=== PATIENT | female | born 1980 | race Caucasian/White ===

== ENCOUNTER 2017-11-14 19:07 | Emergency (ER) | payer SELFPAY ==
--- NOTE | 2017-11-14 20:06 | CT ---
CT LUMBAR SPINE WITHOUT CONTRAST: Comparison: None. History: Chronic low back pain status post lumbar surgery three times in the past over the last five years. Radiating pain to the right knee that started this morning. Technique: Multiple contiguous axial images were obtained in a CT of the lumbar spine without contras t. Sagittal and coronal reformats were performed. FINDINGS: Vertebral bodies and intervertebral discs demonstrate normal height and alignment without fracture or subluxation. The prevertebral and paraspinal soft tissues are unremarkable. There is moderate posterior facet arthrosis from L3-4 through L5-S1. No bony narrowing of the central canal is seen. There is moderate bilateral neural foraminal stenosis at L4-5 and L5-S1. IMPRESSION: 1. 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 POS: [facility]
[2017-11-14] MEDS ORDERED: Ketorolac Tromethamine 30 MG/ML VIAL ONE (20:34)
== END 2017-11-14 21:29 | disposition home or self-care (01) ==
LOC: ERS 19:07
DX: M54.5 Low back pain (principal); Z87.891 Personal history of nicotine dependence; Z79.899 Other long term (current) drug therapy
CPT/HCPCS: 72131; 96372; J1885